=== PATIENT | female | born 1925 | race Caucasian/White ===

== ENCOUNTER 2017-01-17 13:48 | Inpatient (IN) | payer BC ==
[~2017-01-17] VITALS: Ht 162.6 cm; Wt 57.3 kg
[~2017-01-17 13:48] MED LIST: ADALAT CC30 MG PO; CALCITRIOL PO; INDERAL LA160 MG PO; LASIX 20MG TABL20 MG PO; LIPITOR 40MG TA40 MG PO; NORCO 325 MG-101 TAB PO; ULTRAM 50MG TAB50 MG PO; ZYLOPRIM 100MG100 MG PO
[2017-01-17 15:42] LABS: BASO % 0.2 % (0.0-2.0); EOS # 0.2 (0.0-0.7); EOS % 4.3 % (0-4.0); GRAN # 3.2 (1.4-6.5); GRAN % 65.9 % (42.2-75.2); INR 0.9 (0.8-3.0); LYMPH # 0.8 (1.2-3.4); MEAN CELL VOLUME 103 fl (80.0-100.0); MEAN CORPUSCULAR HGB CONC 31 g/dl (33.0-37.0); MEAN PLATELET VOLUME 10.8 fl (7.4-10.4); MONO # 0.6 (0.1-0.6); MONO % 12.2 % (1.7-9.3); PLATELET COUNT 148 K/mm3 (130-400); RED BLOOD COUNT 2.42 M/mm3 (4.10-5.30); REDCELL DISTRIBUTION WIDTH-CV 13.5 % (11.5-14.5); WHITE BLOOD COUNT 4.8 K/mm3 (4.8-10.8)
[2017-01-17 15:45] LABS: PARTIAL THROMBOPLASTIN TIME 33.3 SECONDS (26.0-37.0)
[2017-01-17 15:50] LABS: HEMOGLOBIN 7.7 g/dl (12.5-16.0); MEAN CORPUSCULAR HEMOGLOBIN 32 pg (27.0-31.0)
[2017-01-17 15:58] LABS: ADJUSTED CALCIUM 10.3 mg/dL (8.4-10.2); BILIRUBIN,TOTAL 0.9 mg/dL (0.0-1.0); CALCIUM 10.3 mg/dL (8.4-10.2); MAGNESIUM 1.5 mg/dL (1.6-2.3); POTASSIUM 5.5 mmol/L (3.4-5.0); TOTAL PROTEIN 6.9 gm/dL (6.4-8.2)
[2017-01-17 16:00] LABS: CREATININE, serum 5.08 mg/dL (0.52-1.25)
[2017-01-17 16:55] LABS: PH 7 (5-8); SQUAMOUS EPITHELIAL None Seen /hpf; URINE APPEARANCE Clear; URINE BACTERIA None Seen /hpf; URINE BILIRUBIN Negative (NEGATIVE); URINE BLOOD Negative (NEGATIVE); URINE COLOR Straw; URINE GLUCOSE 1+ (NEGATIVE); URINE KETONE Negative (NEGATIVE); URINE RBC 0-2 /hpf; URINE UROBILINOGEN Negative (NEGATIVE); URINE WBC 0-2 /hpf
[2017-01-17] MEDS ORDERED: ZYLOPRIM 100MG100 MG PO (17:43)
[2017-01-17] MEDS ORDERED: ROCALTROL0.5 MCG PO (17:44)
[2017-01-17] MEDS ORDERED: LIPITOR 40MG TA40 MG PO (17:44)
[2017-01-17] MEDS ORDERED: NORCO 325 MG-7.1 TAB PO (17:45)
[2017-01-17] MEDS ORDERED: PROCARDIA XL 3030 MG PO (17:46)
[2017-01-17] MEDS ORDERED: INDERAL LA160 MG PO (17:47)
[2017-01-17] MEDS ORDERED: SODIUM BICARBO650 MG PO (17:48)
[2017-01-17] MEDS ORDERED: NAMENDA XR PO (17:48)
[2017-01-17] MEDS ORDERED: ASPIRIN 81M81 MG/TA2 PO (17:48)
[2017-01-17] MEDS ORDERED: VITAMIND3 5000 PO (17:49)
[2017-01-17 18:24] VITALS: BP 157/63; PULSE 75; TEMP 97.8
[2017-01-17 19:21] LABS: RETIC % 1.1 % (0.5-3.52)
[2017-01-17 19:52] VITALS: BP 89/64; PULSE 79; TEMP 97.8
[2017-01-17 23:11] LABS: PH 7 (5-8); SQUAMOUS EPITHELIAL 0-2 /hpf; URINE APPEARANCE Clear; URINE BACTERIA None Seen /hpf; URINE BILIRUBIN Negative (NEGATIVE); URINE BLOOD Negative (NEGATIVE); URINE COLOR Straw; URINE GLUCOSE 1+ (NEGATIVE); URINE KETONE Negative (NEGATIVE); URINE RBC 0-2 /hpf; URINE UROBILINOGEN Negative (NEGATIVE); URINE WBC 0-2 /hpf
[2017-01-17 23:16] VITALS: BP 155/62; PULSE 79; TEMP 97.9
[2017-01-18 04:36] VITALS: BP 154/58; PULSE 82; TEMP 98.2
[2017-01-18 07:47] LABS: BASO % 0.4 % (0.0-2.0); EOS # 0.2 (0.0-0.7); EOS % 2.7 % (0-4.0); GRAN # 5.8 (1.4-6.5); LYMPH # 0.8 (1.2-3.4); LYMPH % 10.1 % (20.0-51.0); MEAN CELL VOLUME 103 fl (80.0-100.0); MEAN CORPUSCULAR HGB CONC 31 g/dl (33.0-37.0); MEAN PLATELET VOLUME 11.3 fl (7.4-10.4); MONO # 0.9 (0.1-0.6); PLATELET COUNT 162 K/mm3 (130-400); RED BLOOD COUNT 2.57 M/mm3 (4.10-5.30); REDCELL DISTRIBUTION WIDTH-CV 13.6 % (11.5-14.5); WHITE BLOOD COUNT 7.7 K/mm3 (4.8-10.8)
[2017-01-18 07:56] VITALS: BP 186/89; PULSE 91; TEMP 98.7
[2017-01-18 07:56] LABS: HEMATOCRIT 26.5 % (37.0-47.0); HEMOGLOBIN 8.2 g/dl (12.5-16.0); MEAN CORPUSCULAR HEMOGLOBIN 32 pg (27.0-31.0)
[2017-01-18 07:57] LABS: CALCIUM 10.2 mg/dL (8.4-10.2); PHOSPHOROUS 5.2 mg/dL (2.5-4.5); POTASSIUM 4.4 mmol/L (3.4-5.0)
[2017-01-18 08:18] LABS: CREATININE, serum 4.82 mg/dL (0.52-1.25)
[2017-01-18 11:20] VITALS: BP 180/56; PULSE 72; TEMP 98.4
[2017-01-18 16:05] VITALS: BP 147/51; PULSE 70; TEMP 98.5
[2017-01-18 19:36] VITALS: BP 150/48; PULSE 76; TEMP 97.9
[2017-01-18 22:27] LABS: PROT-CREAT RATIO, URINE 3.8 (())
[2017-01-18 23:35] VITALS: BP 159/60; PULSE 76; TEMP 97.9
[2017-01-19 04:09] VITALS: BP 150/82; PULSE 79; TEMP 98.1
[2017-01-19 07:53] LABS: BASO % 0.7 % (0.0-2.0); EOS # 0.1 (0.0-0.7); EOS % 3.3 % (0-4.0); GRAN # 2.6 (1.4-6.5); LYMPH % 23.6 % (20.0-51.0); MEAN CELL VOLUME 102 fl (80.0-100.0); MEAN CORPUSCULAR HGB CONC 32 g/dl (33.0-37.0); MEAN PLATELET VOLUME 11.1 fl (7.4-10.4); MONO # 0.4 (0.1-0.6); MONO % 9.9 % (1.7-9.3); PLATELET COUNT 160 K/mm3 (130-400); RED BLOOD COUNT 2.47 M/mm3 (4.10-5.30); REDCELL DISTRIBUTION WIDTH-CV 13.5 % (11.5-14.5); WHITE BLOOD COUNT 4.2 K/mm3 (4.8-10.8)
[2017-01-19 07:54] LABS: ALBUMIN 3.9 gm/dL (3.5-5.0); CALCIUM 10.5 mg/dL (8.4-10.2); PHOSPHOROUS 4.4 mg/dL (2.5-4.5); POTASSIUM 3.7 mmol/L (3.4-5.0)
[2017-01-19 08:19] LABS: CREATININE, serum 3.98 mg/dL (0.52-1.25)
[2017-01-19 08:20] LABS: HEMATOCRIT 25.1 % (37.0-47.0); HEMOGLOBIN 7.9 g/dl (12.5-16.0); MEAN CORPUSCULAR HEMOGLOBIN 32 pg (27.0-31.0)
[2017-01-19 08:52] VITALS: BP 152/63; PULSE 73; TEMP 98
[2017-01-19 12:29] VITALS: BP 149/62; PULSE 109; TEMP 98.6
[2017-01-19 16:21] VITALS: BP 154/59; PULSE 75
[2017-01-19 20:32] VITALS: BP 137/63; PULSE 81; TEMP 98.2
[2017-01-20 03:37] VITALS: BP 175/78; PULSE 78; TEMP 97.3
[2017-01-20 07:49] VITALS: BP 178/80; PULSE 81; TEMP 97.6
[2017-01-20 08:05] LABS: BASO # 0.1 (0.0-0.2); BASO % 0.7 % (0.0-2.0); EOS # 0.1 (0.0-0.7); EOS % 1.5 % (0-4.0); GRAN # 5.2 (1.4-6.5); GRAN % 72.6 % (42.2-75.2); LYMPH # 1.3 (1.2-3.4); LYMPH % 18.3 % (20.0-51.0); MEAN CELL VOLUME 102 fl (80.0-100.0); MEAN CORPUSCULAR HGB CONC 31 g/dl (33.0-37.0); MEAN PLATELET VOLUME 11.1 fl (7.4-10.4); MONO # 0.5 (0.1-0.6); MONO % 6.5 % (1.7-9.3); PLATELET COUNT 188 K/mm3 (130-400); RED BLOOD COUNT 2.82 M/mm3 (4.10-5.30); REDCELL DISTRIBUTION WIDTH-CV 13.6 % (11.5-14.5); WHITE BLOOD COUNT 7.1 K/mm3 (4.8-10.8)
[2017-01-20 08:13] LABS: ALBUMIN 4.4 gm/dL (3.5-5.0); CALCIUM 11.1 mg/dL (8.4-10.2); CREATININE, serum 3.6 mg/dL (0.52-1.25); PHOSPHOROUS 3.9 mg/dL (2.5-4.5); POTASSIUM 4.5 mmol/L (3.4-5.0)
[2017-01-20 08:43] LABS: HEMATOCRIT 28.8 % (37.0-47.0); MEAN CORPUSCULAR HEMOGLOBIN 32 pg (27.0-31.0)
[2017-01-20 11:42] VITALS: BP 132/73; PULSE 74; TEMP 97.7
[2017-01-20 13:44] LABS: ALBUMIN FRACTION 3.8 g/dL (2.6-4.5); ALPHA 1 FRACTION 0.4 g/dL (0.3-0.5); ALPHA 2 FRACTION 0.8 g/dL (0.6-1.2); ALPHA 2 PERCENTAGE 13.2 % (8.4-17.5); BETA 1 FRACTION 0.4 g/dL (0.4-0.6); BETA 1 PERCENTAGE 5.8 % (5.4-8.9); BETA 2 FRACTION 0.3 g/dL (0.2-0.5); BETA 2 PERCENTAGE 5.3 % (3.8-7.7); GAMMA FRACTION 0.6 g/dL (0.4-1.7); GAMMA PERCENTAGE 8.7 % (8.1-23.0); SERUM PROTEIN TOTAL 6.3 g/dL (6.0-7.6)
[2017-01-20 15:40] VITALS: BP 145/84; PULSE 69; TEMP 98.4
[2017-01-20 19:42] VITALS: BP 144/50; PULSE 71; TEMP 98
[2017-01-20 23:18] VITALS: BP 136/53; PULSE 72; TEMP 98.2
[2017-01-20 23:21] LABS: HOURS 24 Hr (()); VOLUME 1800 mL (())
[2017-01-21 03:46] VITALS: BP 141/79; PULSE 77; TEMP 97.4
[2017-01-21 06:59] LABS: BASO % 0.5 % (0.0-2.0); EOS % 0.3 % (0-4.0); GRAN # 4.2 (1.4-6.5); GRAN % 68.1 % (42.2-75.2); LYMPH # 1.4 (1.2-3.4); LYMPH % 22.4 % (20.0-51.0); MEAN CELL VOLUME 101 fl (80.0-100.0); MEAN CORPUSCULAR HGB CONC 32 g/dl (33.0-37.0); MEAN PLATELET VOLUME 11.2 fl (7.4-10.4); MONO # 0.5 (0.1-0.6); MONO % 8.2 % (1.7-9.3); PLATELET COUNT 180 K/mm3 (130-400); RED BLOOD COUNT 2.74 M/mm3 (4.10-5.30); REDCELL DISTRIBUTION WIDTH-CV 13.3 % (11.5-14.5); WHITE BLOOD COUNT 6.2 K/mm3 (4.8-10.8)
[2017-01-21 07:21] LABS: ALBUMIN 4.3 gm/dL (3.5-5.0); CALCIUM 10.7 mg/dL (8.4-10.2); CREATININE, serum 3.63 mg/dL (0.52-1.25); PHOSPHOROUS 3.8 mg/dL (2.5-4.5); POTASSIUM 4.1 mmol/L (3.4-5.0)
[2017-01-21 07:28] VITALS: BP 176/74; PULSE 77; TEMP 98
[2017-01-21 07:45] LABS: HEMATOCRIT 27.6 % (37.0-47.0); HEMOGLOBIN 8.7 g/dl (12.5-16.0); MEAN CORPUSCULAR HEMOGLOBIN 32 pg (27.0-31.0)
[2017-01-21 12:02] VITALS: BP 129/57; PULSE 71; TEMP 97.9
[2017-01-21 13:02] LABS: KAPPA FREE LIGHT CHAIN-SERUM 6.15 mg/dL (()); KAPPA LAMBDA RATIO 3.01 (())
[2017-01-21 15:38] VITALS: BP 138/58; PULSE 74; TEMP 97.8
[2017-01-21 20:05] VITALS: BP 156/65; PULSE 82; TEMP 98.1
[2017-01-22 03:32] VITALS: BP 173/75; PULSE 97; TEMP 97.1
[2017-01-22 07:16] LABS: BASO % 0.5 % (0.0-2.0); EOS % 0.4 % (0-4.0); GRAN # 5.1 (1.4-6.5); GRAN % 65.4 % (42.2-75.2); LYMPH # 1.9 (1.2-3.4); LYMPH % 23.8 % (20.0-51.0); MEAN CELL VOLUME 100 fl (80.0-100.0); MEAN CORPUSCULAR HGB CONC 31 g/dl (33.0-37.0); MEAN PLATELET VOLUME 11.3 fl (7.4-10.4); MONO # 0.7 (0.1-0.6); MONO % 9.5 % (1.7-9.3); PLATELET COUNT 208 K/mm3 (130-400); RED BLOOD COUNT 2.89 M/mm3 (4.10-5.30); REDCELL DISTRIBUTION WIDTH-CV 13.2 % (11.5-14.5); WHITE BLOOD COUNT 7.8 K/mm3 (4.8-10.8)
[2017-01-22 07:19] LABS: HEMATOCRIT 28.9 % (37.0-47.0); MEAN CORPUSCULAR HEMOGLOBIN 31 pg (27.0-31.0)
[2017-01-22 07:34] LABS: ALBUMIN 4.2 gm/dL (3.5-5.0); CALCIUM 10.6 mg/dL (8.4-10.2); CREATININE, serum 3.74 mg/dL (0.52-1.25); PHOSPHOROUS 3.4 mg/dL (2.5-4.5)
[2017-01-22 08:10] VITALS: BP 184/56; PULSE 76; TEMP 97.7
[2017-01-22 11:00] VITALS: BP 174/68; PULSE 68; TEMP 98.7
[2017-01-22 15:27] VITALS: BP 144/63; BP 144/94; PULSE 66; PULSE 87; TEMP 97.3; TEMP 97.7
[2017-01-22 20:42] VITALS: BP 130/64; PULSE 73; TEMP 97.4
[2017-01-22 23:31] VITALS: BP 164/65; PULSE 75; TEMP 97.8
[2017-01-23 03:52] VITALS: BP 195/82; PULSE 80; TEMP 97.8
[2017-01-23 05:20] VITALS: BP 170/76
[2017-01-23 09:26] VITALS: BP 152/73; PULSE 79; TEMP 97.6
[2017-01-23] MEDS ORDERED: SODIUM BICARBO650 MG PO (10:20)
[2017-01-25 15:20] LABS: URINE ALPHA 1 % 8.5 % (()); URINE ALPHA 2 % 9.7 % (()); URINE BETA % 10.8 % (()); URINE GAMMA % 7.9 % (())
[2017-05-23] MEDS ORDERED: ARANESP0.04 MG/0. SQ (15:32)
[2017-05-23] MEDS ORDERED: MYRBETR25MG PO (15:36)
[2017-05-23] MEDS ORDERED: VELTASSA8.4 GM PO (15:36)
[2017-05-23] MEDS ORDERED: REMERON 15M15 MG/TA1 PO (15:39)
[2017-06-04] MEDS ORDERED: NORCO 325 MG-7.1 TAB PO (23:05)
[2017-06-05] MEDS ORDERED: LIDODERM 5% PATC1 EA TP (14:02)
[2017-06-05] MEDS ORDERED: TRANSDERM-0.5 MG/21 TD (14:02)
[2017-06-05] MEDS ORDERED: DULCOLAX S10 MG/SUPP RC (14:05)
[2017-06-05] MEDS ORDERED: COMPAZINE25 MG/SUPP RC (14:05)
[2017-06-05] MEDS ORDERED: ZOFRAN INJ4 MG/2 ML IV (14:05)
[2017-06-05] MEDS ORDERED: LIQUIFILM TEARS15 ML OP (14:06)
[2017-06-05] MEDS ORDERED: FLEET ENEM1 BOT/133 RC (14:06)
[2017-06-05] MEDS ORDERED: ATIVAN 2MG/ML2 MG/ML IV (14:07)
[2017-06-05] MEDS ORDERED: HALDOL 5MG/ML5 MG/ML IV (14:10)
[2017-06-05] MEDS ORDERED: ALBUTEROL0.83 MG/ML IH (14:11)
[2017-06-05] MEDS ORDERED: MORP4 IV (14:11)
== END 2017-01-23 12:03 | disposition home health service (06) | DRG 683 ==
LOC: COL.ER 13:48 → MEDICAL 16:35
PROVIDERS: Internal Medicine Nephrology; Physician Assistant
DX: N17.9 Acute kidney failure, unspecified (principal); N39.0 Urinary tract infection, site not specified; E87.5 Hyperkalemia; I12.9 Hypertensive chronic kidney disease with stage 1 through stage 4 chronic kidney disease, or unspecified chronic kidney disease; N18.4 Chronic kidney disease, stage 4 (severe); D63.1 Anemia in chronic kidney disease; E83.52 Hypercalcemia; W18.30XA Fall on same level, unspecified, initial encounter; F03.90 Unspecified dementia, unspecified severity, without behavioral disturbance, psychotic disturbance, mood disturbance, and anxiety
CPT/HCPCS: A4315; J1650; J1940; J7030; J7512